=== PATIENT | female | born 1955 | race Caucasian/White ===

== ENCOUNTER 2020-07-12 10:26 | Outpatient (CLI) | payer BC ==
[~2020-07-12 10:26] MED LIST: AMLO5TAB92 PO; HYDR-3972 PO; LOSA1TAB39 PO; NEBI5TAB10 PO; OMEP-50 PO; TRIA1CAP6 PO
== END 2020-07-12 23:59 | disposition home or self-care (01) ==
LOC: RAD 10:26
PROVIDERS: ATTEND Family Medicine
DX: R06.02 Shortness of breath (principal); R05 Cough; M47.819 Spondylosis without myelopathy or radiculopathy, site unspecified; M19.012 Primary osteoarthritis, left shoulder; M19.011 Primary osteoarthritis, right shoulder; I70.0 Atherosclerosis of aorta
CPT/HCPCS: 71046